=== PATIENT | female | born 1980 | race Caucasian/White ===

== ENCOUNTER 2017-05-22 21:56 | Emergency (ER) | payer OTHER ==
--- NOTE | ~2017-05-22 | CR142 ---
[facility] A Service of [facility] RADIOLOGY TEXT RESULTS PATIENT: RAN RICHEY LOCATION: CFTX : 82 UNIT #: [id number] AGE: [address]: Jeannine Araujo SEX: F ORDER DR: [id number] [facility] [address] [place], [place] [address] [id number] E MR#: [id number] Acc #: [id number] NAME: RAN RICHEY. : 1980 SEX: F STUDY DATE/TIME: 05/22/2017 23:18 UNIT: [facility] ROOM: STUDY DESCRIPTION: CR Hand Min 3 Views Rt Attending Physician: Jeannine Araujo Pa-C Ordering Physician: Rhett Hendricks M.D. Primary Care Physician: Soumya Jacques M.D. MEDICAL IMAGING REPORT This report is preliminary unless electronic signature is present EXAM Right hand. INDICATIONS Fall with thumb pain. Patient fell last night. FINDINGS AP, lateral, and oblique projections of the hand show good mineralization with normal carpal, metacarpal, and phalangeal anatomy without indication of fracture, dislocation, or soft tissue radiopaque foreign body. IMPRESSION Normal hand. Dictated by... Danielito Roger M.D. THIS IS AN ELECTRONICALLY VERIFIED REPORT Danielito Roger M.D. at 05/23/2017 8:21 PM BEL/margarita TD: 05/23/2017 14:27 JOB #: [id number] MEDICAL IMAGING REPORT Page 1 of 1 COPY
[~2017-05-22 21:56] MED LIST: ALBUTEROL17 GM INH; ALPRAZOLAM; BACTRIM DS TABL1 TAB PO; CELEXA20 MG; CIPRO PO; DESYREL50 MG DOB; HYDROCODON-ACE1 EAC7 PO; LORCET PLUS TAB1 TAB PO; LORTAB 5/500 TA1 TA1 PO; LORTAB 7.5-5001 TAB PO; MACROBID 100 M100 MG PO; NO MEDICATIONS; NORCO 5/325 TAB1 TAB PO; PAXIL; PERCOCET7.5 PO; PHENERGAN DM1 ML PO; PHENERGAN PO; PHENERGAN25 M1 DOB; PREDNISONE PO; PREVACID; PYRIDIUM PO; TYLOX 5/500 CAP1 CAP PO; ULTRAM PO; VIBRAMYCIN100 M1 PO; VICODIN 5/500 T1 TAB PO; VICODIN PO; XANAX1 MG; ZANTAC
== END 2017-05-22 23:50 | disposition home or self-care (01) ==
LOC: CFTX 21:56 → CED 21:56 → CFTX 23:06
DX: S63.641A Sprain of metacarpophalangeal joint of right thumb, initial encounter (principal); F43.10 Post-traumatic stress disorder, unspecified; F41.9 Anxiety disorder, unspecified; F17.210 Nicotine dependence, cigarettes, uncomplicated; Z91.040 Latex allergy status; Z88.5 Allergy status to narcotic agent; Z88.8 Allergy status to other drugs, medicaments and biological substances; W01.0XXA Fall on same level from slipping, tripping and stumbling without subsequent striking against object, initial encounter; Y92.009 Unspecified place in unspecified non-institutional (private) residence as the place of occurrence of the external cause
CPT/HCPCS: 29125; 73130; 99283